=== PATIENT | male | born 1960 | race Caucasian/White ===

== ENCOUNTER 2021-01-30 12:31 | Inpatient (IN) | payer BC, OTHER ==
[~2021-01-30] VITALS: Ht 190.5 cm; Wt 95.6 kg
--- NOTE | 2021-01-30 12:34 | NUR ---
PT BIB EMS HAVING HAVING PALPATIONS THAT STARTED LAST NIGHT. PT FOUND TO BE IN AFIB. GIVEN 324 OF ASPRIN AND 500 CC BOLUS OF NS. PT DENIES CP. DENIES MEDICAL HISTORY. EKG AT BEDSIDE. PT ATTACHED TO MONITORS. OBSERVED AFIB ON MONITOR HR 110-130; NADN. VSS.
--- NOTE | 2021-01-30 13:07 | NUR ---
DR. MENJIVAR TO BEDSIDE FOR EVALUATION. AT BEDSIDE. VSS. CHANCE.
[2021-01-30] MEDS ORDERED: DILTIAZEM 5 MG/ML, 5ML ONE (13:14)
[2021-01-30] MEDS ORDERED: DILTIAZEM 5 MG/ML, 5ML IV ONE (13:30)
[2021-01-30] MEDS ORDERED: SODIUM CHLORIDE FLUSH 10ML SYR IVF ONE (13:30)
--- NOTE | 2021-01-30 13:34 | NUR ---
10 MG OF 20 MG ORDER OF DILTIAZEM ADMINSTERED ORDERED OVER 5 MINUTES SLOW IV PUSH
[2021-01-30 13:47] LABS: BASOPHILS % (AUTO) 1 % (0-1); EOSINOPHILS % (AUTO) 2 % (1-7); LYMPHOCYTES % (AUTO) 14 % (22-44); MEAN CORPUSCULAR HEMOGLOBIN 31.1 pg (27.5-34.5); MEAN CORPUSCULAR HGB CONC 34.5 g/dL (33.2-36.2); MEAN PLATELET VOLUME 8.5 fL (7.4-10.4); MONOCYTES % (AUTO) 10 % (2-9); NEUTROPHILS % (AUTO) 73 % (42-75); PLATELET COUNT 230 x10^3/uL (130-400); RED BLOOD COUNT 4.97 x10^6/uL (4.38-5.82); RED CELL DISTRIBUTION WIDTH 13.3 % (9.4-14.8)
[2021-01-30 13:48] LABS: MD NO
--- NOTE | 2021-01-30 13:50 | NUR ---
PT MEDICATED WITH ADDITONAL 10MG OF DILT PER DR. MENJIVAR
[2021-01-30 13:51] LABS: ALBUMIN 3.5 g/dL (3.4-5.0); ANION GAP 5 mmol/L (5-15); CALCIUM 8.9 mg/dL (8.5-10.1); CHLORIDE 112 mmol/L (98-107); CREATININE 1.12 mg/dL (0.7-1.3); INTERNATIONAL NORMALIZED RATIO 1.03 (0.93-1.1)
[2021-01-30 13:55] LABS: TROPONIN I < 0.015 ng/mL (0.000-0.045)
--- NOTE | 2021-01-30 14:24 | NUR ---
Lunch RN: MD Feliciano back to bedside to update pt on POC.
[2021-01-30] MEDS ORDERED: ASPIRIN 81 MG TABLET CHEW PO ONE (14:30)
[2021-01-30] MEDS ORDERED: SODIUM CHLORIDE FLUSH 10ML SYR IVF PRN (15:00)
--- NOTE | 2021-01-30 15:32 | NUR ---
[facility] AT BEDSIDE
--- NOTE | 2021-01-30 15:32 | NUR ---
report called to korey rodriguez
[2021-01-30 16:00] VITALS: BP 121/71
[2021-01-30] MEDS ORDERED: ONDANSETRON ODT 4 MG PO PRN (16:00)
[2021-01-30] MEDS ORDERED: ACETAMINOPHEN 325 MG TABLET PO PRN (16:00)
[2021-01-30] MEDS ORDERED: ONDANSETRON 2MG/ML, 2ML IVPush PRN (16:00)
[2021-01-30] MEDS ORDERED: DOCUSATE 100 MG CAPSULE PO PRN (16:00)
[2021-01-30] MEDS ORDERED: ENALAPRILAT 1.25 MG/ML, 2ML IVPush PRN (16:00)
[2021-01-30] MEDS ORDERED: LABETALOL 5MG/ML, 20ML IVPush PRN (16:00)
[2021-01-30] MEDS: ENOXAPARIN 100 MG/ML SQ SCH (16:33)
[2021-01-30] MEDS: DILTIAZEM 125 MG in SODIUM CHLORIDE 0.9% 100 ML IV SCH (16:33)
[2021-01-30 19:37] LABS: TROPONIN I < 0.015 ng/mL (0.000-0.045)
[2021-01-30 20:17] VITALS: BP 135/92
[2021-01-30] MEDS: CALCIUM CARBONATE 500 MG TAB.CHEW PO PRN (23:02)
[2021-01-31 02:04] LABS: TROPONIN I < 0.015 ng/mL (0.000-0.045)
[2021-01-31 02:05] VITALS: BP 130/84
[2021-01-31] MEDS: ENOXAPARIN 100 MG/ML SQ SCH (05:13)
[2021-01-31] MEDS: ASPIRIN 81 MG TABLET EC PO SCH (05:13)
[2021-01-31 05:30] LABS: BASOPHILS % (AUTO) 1 % (0-1); EOSINOPHILS % (AUTO) 5 % (1-7); LYMPHOCYTES % (AUTO) 22 % (22-44); MEAN CORPUSCULAR HEMOGLOBIN 31.1 pg (27.5-34.5); MEAN CORPUSCULAR HGB CONC 34.2 g/dL (33.2-36.2); MEAN PLATELET VOLUME 8.8 fL (7.4-10.4); MONOCYTES % (AUTO) 11 % (2-9); NEUTROPHILS % (AUTO) 61 % (42-75); PLATELET COUNT 207 x10^3/uL (130-400); RED BLOOD COUNT 4.93 x10^6/uL (4.38-5.82); RED CELL DISTRIBUTION WIDTH 13.2 % (9.4-14.8)
[2021-01-31 05:34] LABS: MD NO
[2021-01-31 05:40] LABS: CHLORIDE 111 mmol/L (98-107)
[2021-01-31 05:56] LABS: ANION GAP 5 mmol/L (5-15); CALCIUM 8.5 mg/dL (8.5-10.1); CHOL/HDL RATIO 5.7; CHOLESTEROL, TOTAL 189 mg/dL (140-239); CREATININE 0.85 mg/dL (0.7-1.3); HDL CHOL % 17 % (26-37); HDL CHOLESTEROL (DIRECT) 33 mg/dL (40-60); LDL CHOLESTEROL,CALCULATED 122 mg/dL (54-169); LDL/HDL RATIO 3.7 (0.5-3.0); TRIGLYCERIDES 172 mg/dL (50-200); VLDL CHOLESTEROL 34 mg/dL (0-25)
[2021-01-31 06:44] VITALS: BP 126/81
[2021-01-31] MEDS: CALCIUM CARBONATE 500 MG TAB.CHEW PO PRN (10:46)
[2021-01-31 13:40] VITALS: BP 104/65
[2021-01-31] MEDS: DILTIAZEM 125 MG in SODIUM CHLORIDE 0.9% 100 ML IV SCH (15:54)
[2021-01-31 19:34] VITALS: BP 109/72
[2021-01-31] MEDS ORDERED: ATORVASTATIN 20 MG TABLET PO SCH (21:00)
[2021-01-31] MEDS: APIXABAN 5 MG TABLET PO SCH (21:37)
[2021-02-01 01:34] VITALS: BP 111/76
[2021-02-01] MEDS: ASPIRIN 81 MG TABLET EC PO SCH (06:24)
[2021-02-01] MEDS: APIXABAN 5 MG TABLET PO SCH (08:32)
[2021-02-01 08:37] VITALS: BP 119/76
[2021-02-01] MEDS ORDERED: ATOR20TA37 PO (11:39)
[2021-02-01] MEDS ORDERED: APIX5TAB PO (11:39)
[2021-02-01] MEDS ORDERED: DILT120C2 PO (11:46)
[2021-02-01] MEDS ORDERED: DILTIAZEM 120 MG CAP.ER.24H PO SCH (12:00)
== END 2021-02-01 12:24 | disposition home or self-care (01) | DRG 309 ==
LOC: ED 14:05 → EDIP 14:38 → 5SO 15:50 → DCLOUNGE 02-01 12:15
PROVIDERS: ADMIT Family Medicine; ATTEND Family Medicine
PROC: 5A2204Z Restoration of Cardiac Rhythm, Single (ICD-10-PCS; principal; 2021-02-01 10:56)
DX: I48.91 Unspecified atrial fibrillation (principal); D68.69 Other thrombophilia; E78.5 Hyperlipidemia, unspecified; G47.30 Sleep apnea, unspecified; I10 Essential (primary) hypertension; F17.200 Nicotine dependence, unspecified, uncomplicated; Z82.49 Family history of ischemic heart disease and other diseases of the circulatory system; Z83.3 Family history of diabetes mellitus
CPT/HCPCS: 33286; 36415; 71045; 80048; 80061; 82040; 83036; 83735; 84100; 84443; 84484; 85025; 85610; 85730; 92960; 93005; 93306; 96374; G0378; J1650